=== PATIENT | male | born 1970 | race Caucasian/White ===

== ENCOUNTER 2017-12-21 15:03 | Inpatient (IN) | payer MEDICAID ==
--- NOTE | ~2017-12-21 | OP ---
PATIENT NAME: EMILIANO CRESPO MEDICAL RECORD: [id number] :72 LOCATION:D.M2 D.2117 ADMISSION DATE:12/21/17 SURGEON: PATRICIA MEHTA MD DATE OF OPERATION: 12/22/2017 PROCEDURE: Left heart catheterization, selective coronary angiography, right femoral artery approach. CATHETERS: A 5-Estonian sheath, 5/4 left and right Aamir, 5/4 pig. The procedure was well tolerated, and the patient returned to [facility]. Sheath removed. ExoSeal device placed. FINDINGS: Left ventriculography in 30-degree BURGOS view: Normal wall motion. Normal systolic function. CORONARY ANATOMY: LEFT MAIN: Left main is free of disease. LAD: Free of disease in the diagonal system. CIRCUMFLEX: Free of disease in the marginal system. RIGHT CORONARY ARTERY: Dominant artery, gives rise to PDA, free of disease. IMPRESSION: Normal systolic function. Normal coronary anatomy. TRANSINT:[id number] Voice Confirmation ID: [id number] DOCUMENT ID: [id number] PATRICIA MEHTA MD at 0843 CC: [id number] DICTATION DATE: 12/22/17817 CONTRACT PROJECT MANAGER: 12/22/17 0922 DIS IN 12/22/17 [address] [place] [address]
--- NOTE | ~2017-12-21 | HP ---
PATIENT: EMILIANO CRESPO MEDICAL RECORD: [id number] ACCOUNT: [id number] LOCATION:[facility].2117 : 72 ADMISSION DATE: 12/21/17 HISTORY AND PHYSICAL EXAMINATION REASON FOR ADMISSION: Chest and abdominal pains. HISTORY OF PRESENT ILLNESS: The patient is a 47-year-old male with history of hyperlipidemia and obesity. 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 [facility] , and stated on the last day, he was stung by something in the ocean. There was no evidence of a bite, but after that point developed onset of left facial, arm and leg tingling and burning discomfort. He had a workup including a trip to [facility] without a definitive diagnosis except for MRI findings as above. He was hospitalized at [facility] in 2016 including a spinal tap, which was unremarkable. He is now followed at [facility] by Dr. Dee, a neurologist. He states his symptoms are significant for a thalamic stroke, not evident on MRI. Nonetheless, he has noticed some intermittent chest discomfort for the last 2 weeks, not with activity. Due to his neuropathy and chest discomfort, he cannot really tell where the pain is coming from. Last night, he said he felt discomfort in his epigastrium somewhat after eating. He got up about 4:00 with increasing pain that initially it radiated into his abdominal area and resolved. He came to the office because of this at 1:30 this afternoon. Exam at that time showed him to be tender in his abdomen, 1+. KUB exam showed a left renal calculus, fairly large in size, but no sign of obstruction or constipation. EKG surprisingly showed inverted T waves in the lateral leads. He was therefore directly admitted to the hospital for cardiology consult. He denies exertional chest pain. 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 SURGICAL HISTORY: Negative. FAMILY HISTORY: Both parents are , both were alcoholics. Father at 60, had diabetes and stroke. Mother had hepatitis alcoholic in nature and at age 50. One brother is alive with history of hypertension. MEDICATIONS: Current medications are aspirin 81 mg a day, Coenzyme Q10 50 mg 2 tabs daily, Cymbalta 60 mg in the evening and 30 in the morning, Ativan 0.5 q.6 hours p.r.n. anxiety, Hyzaar 100/25 one q.a.m., Zofran 4 mg q.4 p.r.n. nausea or vomiting, Livalo 2 mg at bedtime, Maxalt-COUNTERPERSON 10 mg p.r.n. migraine headache, Zanaflex 4 mg tablets 1-1/2 tablets by mouth at bedtime, Calan SR 120 mg p.o. daily. ALLERGIES: DILAUDID. 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 He is now disabled due to his symptomatology. REVIEW OF SYSTEMS: HISTORY AND PHYSICAL [id number] EMILIANO CRESPO CONSTITUTIONAL: No fever, fatigue, or weight change. HEENT: No recent visual change, sinus congestion or sore throat. He has some intermittent trouble with left-sided facial discomfort. NECK: Denies any musculoskeletal cervicalgia. GASTROINTESTINAL: No nausea or vomiting, but abdominal pain as mentioned above. No change in stools or blood per rectum. No fatty food intolerance. GENITOURINARY: No incontinence, dysuria or nocturia. CARDIAC: No exertional chest pain. It is of note that his chest and abdominal pain relieved by nitroglycerin times 1. INTEGUMENT: No rash or itching. PSYCHIATRIC: Admits to depressed mood and anxiety because he cannot work. MUSCULOSKELETAL: He has chronic intermittent discomfort in his left arm, leg and left face. It is a tingling to burning sensation, he states. PHYSICAL EXAMINATION: VITAL SIGNS: Weight is pending. Blood pressure is 130/80. Heart rate is 82 and regular. GENERAL: The patient is anxious and alert. HEENT: Eyes are clear. Oropharynx is unremarkable. NECK: Supple without bruits or masses. CHEST: Chest wall tender over the sternum. No crepitance. HEART: Regular rate without murmur. CHEST: Clear. ABDOMEN: Soft, obese with tenderness in the left upper quadrant. No rebound. No masses are noted. GENITOURINARY: Unremarkable. EXTREMITIES: No CCE. NEUROLOGICAL: He has increased sensation discomfort to touch in the left thalamic distribution left arm, leg and face. He has 2+ manager organizational on the right, 1+ on the left. Gait is normal. LABORATORY DATA: KUB in the office showed question of a left pelvic kidney stone without obstruction, normal bowel gas pattern. EKG showed T-wave inversion in the lateral leads. Labs showed a white count of 7700, H&H of 16 and 47.2 respectively with normal diff. Electrolytes are normal. Creatinine is 1.1, glucose 99. Initial troponin is negative. Chest x-ray shows no acute findings. ASSESSMENT: 1. Atypical chest and abdominal pain. 2. Abnormal EKG with lateral T-wave inversions suggesting ischemia. 3. Thalamic pain syndrome. 4. Right choroidal ventricular cyst, hypertension, hyperlipidemia, obesity, depression. PLAN: The patient is admitted for serial cardiac enzymes. Dr. López from cardiology is seeing the patient and plans cardiac catheterization in the morning. TRANSINT:[id number] Voice Confirmation ID: [id number] DOCUMENT ID: [id number] HISTORY AND PHYSICAL [id number] EMILIANO CRESPO TIMOTHY MD at 1034 CC: [id number] DICTATION DATE: 12/21/17 173 [address]S: 12/21/17 1852 ADM IN [id number] [place] [address]
--- NOTE | ~2017-12-21 | HEMODYNAMI ---
PATIENT:EMILIANO CRESPO MEDICAL RECORD: [id number] : 72 [facility] ADMISSION DATE: 12/21/17 Generatedon:12/22/20178:15 Patient name: EMILIANO CRESPO Patient #: [id number] SSN: : Date of study: 12/22/2017 Page: Of Hemodynamic Procedure Report Patient Data Patient Demographics Procedure consent was obtained First Name: EMILIANO Gender: Male Last Name: CHERIE : 1970 [facility] Initial: SHLOMO Age: 47 year(s) Patient #: [id number] Race: Unknown Additional ID: [id number] Contact details Address: [address] [place] [address] [facility] State: [place] City: [place] Zip code: [address] Past Medical History Allergies Allergen Reaction Date Comments Reported Other allergy 12/22/2017 dilaudid Admission Admission Data Admission Date: 12/21/2017 Admission Time: 15:03 Room #: D.2117 Procedure Procedure Types Cath Procedure Diagnostic Procedure LHC LHC w/Coronaries Procedure Description Procedure Date Procedure Date: 12/22/2017 Procedure Start Time: 8:03 Procedure End Time: 8:14 Procedure Staff Name Function Erik Mota MD Performing Physician Grace Wood RT Monitor Yessenia Joiner RN Nurse Soo Castillo RT Scrub Procedure Data Cath Procedure Fluoroscopy Diagnostic fluoroscopy Total fluoroscopy Time: 0.9 time: 0.9 min min Diagnostic fluoroscopy Total fluoroscopy dose: 565 dose: 565 mGy mGy Contrast Material Contrast Material Type Amount (ml) Isovue 300 53 Entry Location Entry Primary Successful Side Size Upsize Upsize Entry Closure Succes sful Closure Location (Fr) 1 (Fr) 2 (Fr) Remarks Device Remarks Femoral Right 5 Fr Exoseal artery Estimated blood loss: 5 ml Diagnostic catheters Device Type Used For End Catheter Placement MULTIPACK JL 4.0 5Fr Left Coronary catheter Angiography MULTIPACK 3DRC 5Fr Right Coronary catheter Angiography MULTIPACK Pigtail 5 Fr LV Angiography catheter Procedure Complications No complications Procedure Medications Medication Administration Route Dosage Oxygen etCO2 Nasal cannula 2 l/min Heparin Flush Bag added to field 2 bags (1000units/500ml NS) 0.9% NaCl I.V. 100 ml/hr Lidocaine 2% added to field 20 Versed I.V. 2 mg Fentanyl I.V. 100 mcg Versed I.V. 1 mg Fentanyl I.V. 50 mcg Hemodynamics Rest Heart Rate: 82 (bpm) Pressure Samples Time Site Value (mmHg) Purpose Heart Use Rate(bpm) 8:08 LV 115/13,15 EDP 91 Gradients Valve Time Site Site Mean SEP/DFP Peak To Heart Use 1 2 (mmHg) (sec/min) Peak Rate (mmHg) (bpm) Aortic 8:08 LV AO 93 Snapshots Pre Cath Intra NCS Post Cath Vital Signs Time Heart Resp SPO2 etCO2 NIBP (mmHg) Rhythm Pain Sedation Rate (ipm) (%) (mmHg) Status Level (bpm) 7:48:35 77 16 97 34.5 131/85(100) NSR 0 (11) 10(A) , No pain 7:53:23 79 20 99 33.1 133/85(104) NSR 0 (11) 10(A) , No pain 7:58:14 76 18 95 40.6 130/75(98) NSR 0 (11) 10(A) , No pain 8:03:01 90 17 95 42.8 133/89(101) NSR 0 (11) 10(A) , No pain 8:07:50 91 13 95 45.8 134/78(101) NSR 0 (11) 10(A) , No pain 8:12:39 93 15 96 42.1 134/82(99) NSR 0 (11) 10(A) , No pain Medications Time Medication Route Dose Verified Delivered Reason Notes Effe ctiveness by by 7:49:16 Oxygen etCO2 2 Erik Casas Per Nasal l/min St Emiliano Joiner RN physician elis SRIVASTAVA 7:49:32 Heparin Flush added 2 Erik Casas used for Bag to bags St Emiliano Joiner RN procedure (1000units/500ml field SRIVASTAVA NS) 7:49:42 0.9% NaCl I.V. 100 Erik Yessenia Per ml/hr St Emiliano nicolas MD 7:52:40 Lidocaine 2% added 20ml Erik Valencia for local to vial St Emiliano Mota anesthetic field MD SRIVASTAVA 8:01:41 Versed I.V. 2 mg Erik Casas for St Emiliano Joiner RN sedation 8:01:46 Fentanyl I.V. 100 Erik Casas for mcg St Emiliano Joiner RN sedation 8:05:50 Versed I.V. 1 mg [address]as for [facility] Emiliano Joiner RN sedation 8:05:55 Fentanyl I.V. 50 Erik Casas for mcg St Emiliano Joiner RN sedation Procedure Log Time Note 7:28:10 Soo Castillo RT(R) sent for patient. Start room use. 7:28:11 Time tracking: Regular hours (M-F 7:00 - 5:00) 7:28:14 Plan of Care:Hemodynamics will remain stable., Cardiac rhythm will remain stable., Comfort level will be maintained., Respiratory function will remain adequate., Patient/ family verbilizes understanding of procedure., Procedure tolerated without complication., Recovers from procedure without complications.. 7:37:47 Patient received from PCU to CCL 1 Alert and oriented. Tansferred to table in Supine position. 7:37:48 Warm blankets applied, and benedicto hugger turned on for patient comfort. 7:37:49 Correct patient and procedure confirmed by team. 7:37:50 Signed procedure consent form obtained from patient. 7:37:51 ECG and BP/O2 sat monitors applied to patient. 7:37:51 Full Disclosure recording started 7:47:31 Vital chart was started 7:47:35 Rhythm: sinus rhythm 7:47:44 H&P Date Dictated: 12/21/2017 Within 30 days and on chart.. 7:47:45 Pre-procedure instructions explained to patient. 7:47:46 Pre-op teaching completed and patient verbalized understanding. 7:47:51 Family in patients room. 7:47:53 Patient NPO since Midnight. 7:48:27 Patient allergic to Other allergydilaudid 7:48:30 Is the patient allergic to Iodine/contrast media? No. 7:48:32 Is patient on blood thinner?Yes 7:48:34 ACC The patient was administered the following blood thiners within the last 24 hours: ACCPlavix 7:48:55 PLAVIX 600MG GIVEN 12/21/17 @ 1655 7:49:16 Oxygen 2 l/min etCO2 Nasal cannula was administered by Yessenia Joiner RN; Per physician; 7:49:18 Patient diabetic? No. 7:49:21 Previous problem with sedation/anesthesia? No ? 7:49:22 Snore? Yes 7:49:24 Sleep apnea? Yes 7:49:25 Deviated septum? No 7:49:25 Opens mouth fully? Yes 7:49:26 Sticks out tongue? Yes 7:49:28 Airway obstruction? No ? 7:49:30 Dentures? No ? 7:49:32 Heparin Flush Bag (1000units/500ml NS) 2 bags added to field was administered by Yessenia Joiner RN; used for procedure; 7:49:41 Pre procedure: right dorsailis pedis pulse 2+ Normal; easily identifiable; not easily obliterated 7:49:42 0.9% NaCl 100 ml/hr I.V. was administered by Yessenia Joiner RN; Per physician; 7:49:43 Modified Tommy's test Ulnar > 7 seconds. 7:49:57 FAILED TOMMY'S TEST 7:50:00 Patient pain scale 0/10 ?. 7:50:07 IV patent on arrival in right hand with 0.9% NaCl at [facility]. 7:50:10 Lab results completed and on chart. 7:50:16 Right groin area was prepped with chlora-prep and draped in sterile fashion 7:50:17 Alarms reviewed by R. N. 7:50:17 Sharps counted by scrub and verified by R.N. 7:50:24 Use device set Femoral Dx 7:50:25 ACIST Syringe (89173) opened to sterile field. 7:50:25 Bag Decanter (2002) opened to sterile field. 7:50:26 Medline Cath Pack ([id number]) opened to sterile field. 7:50:26 DIAGNOSTIC WIRE .035 260cm J wire (106204) opened to sterile field. 7:50:28 ACIST Hand Control (27429) opened to sterile field. 7:50:29 ACIST Manifold (63329) opened to sterile field. 7:50:29 DIAGNOSTIC Multipack 5Fr catheter set (PH5945) opened to sterile field. 7:50:31 Tegaderm 4 x 4 (1626W) opened to sterile field. 7:50:32 SHEATH Prelude 5Fr 0.035 ([id number]) opened to sterile field. 7:50:38 Baseline sample Acquired. 7:51:05 Physician paged 7:52:40 Lidocaine 2% 20ml vial added to field was administered by Erik Mota MD; for local anesthetic; 7:54:02 Zero performed for pressure channel P1 7:54:05 Zero performed for pressure channel P1 8:00:24 Final Timeout: patient, procedure, and site verified with staff and physician. All members of the team are in agreement. 8:00:26 Right groin site verified by team. 8:00:28 Physical assessment completed. ASA score P 2 - A patient with mild systemic disease as per Erik Mota MD. 8:00:31 Sedation plan: IV Moderate Sedation Medication:Versed, Fentanyl 8:01:41 Versed 2 mg I.V. was administered by Yessenia Joiner RN; for sedation; 8:01:46 Fentanyl 100 mcg I.V. was administered by Yessenia Joiner RN; for sedation; 8:03:15 Procedure started. 8:03:17 Local anesthetic to right femoral artery with Lidocaine 2% by Erik Mota MD.INITIAL ACCESS ONLY 8:03:59 A 5 Fr sheath was inserted into the Right Femoral artery 8:04:35 A MULTIPACK JL 4.0 5Fr catheter was advanced over the wire and used for Left Coronary Angiography. 8:05:50 Versed 1 mg I.V. was administered by Yessenia Joiner RN; for sedation; 8:05:52 Catheter removed. 8:05:55 Fentanyl 50 mcg I.V. was administered by Yessenia Joiner RN; for sedation; 8:06:00 A MULTIPACK 3DRC 5Fr catheter was advanced over the wire and used for Right Coronary Angiography. 8:07:03 Catheter removed. 8:07:10 A MULTIPACK Pigtail 5 Fr catheter was advanced over the wire and used for LV Angiography. 8:08:22 LV gram done using ALANA 8:08:33 Injector settings: Ml/sec: 10, Volume: 20, 8:08:34 LV hemodynamics recorded. 8:08:39 EF : 55 % 8:08:43 Catheter removed. 8:09:01 Sheath removed intact; hemostasis achieved with Exoseal to the Right Femoral artery. 8:09:08 Procedure ended.(Physican Out) 8:09:18 Fluoroscopy time 00.90 minutes. 8:09:23 Flurop Dose total: 565 8:09:23 Fluoroscopy dose: 565 mGy 8:09:27 Contrast amount:Isovue 300 53ml. 8:09:28 Sharps counted by scrub and verified by R.N. 8:09:41 Insertion/operative site no bleeding no hematoma. 8:09:44 Post-op/insertion site Right Femoral artery dressed using a 4 x 4 and Tegaderm. 8:09:49 Post right femoral artery:stable, clean and dry 8:09:51 Post Procedure Pulses reassessed and unchanged 8:10:01 Post-procedure physical assessment completed. ASA score P 2 - A patient with mild systemic disease as per Erik Mota MD. 8:10:07 Post procedure rhythm: unchanged. 8:10:11 Estimated blood loss: 5 ml 8:10:21 Post procedure instruction explained to patient.Patient verbalizes understanding. 8:10:21 Patient needs reinforcement of post procedure teaching. 8:10:27 Procedure Complication : No complications 8:10:34 See physician's report for complete and final results. 8:10:45 EXOSEAL 5Fr (EX500) opened to sterile field. 8:10:58 Procedure and supply charges have been captured, reviewed, submitted and are correct. 8:14:25 Vital chart was stopped 8:14:27 Report given to PCU. 8:14:31 Patient transfered to PCU with Bed. 8:14:39 Procedure ended. 8:14:39 Full Disclosure recording stopped 8:14:43 End room use (Document Last) Device Usage Item Name Manufacture Quantity Catalog Number Hospital Part Current M inimal Lot# / Charge Number Stock Stock Serial# Code ACIST Syringe Acist 1 10566 [id number] [id number] 2 0 (94511) [employer] Bag Decanter Microtek 1 [id number] 87175 [id number] 5 () [employer] Inc. Medline Cath Cardinal 1 [id number] 635414 61161 884870 5 [employer] ([id number]) DIAGNOSTIC WIRE St Willie 1 105105 064568 935535 260106 3 0 .035 260cm J wire (010705) ACIST Hand Acist 1 06252 995872 123485 612910 5 Control (87855) [employer] ACIST Manifold Acist 1 18015 468430 027691 248510 5 (55849) [employer] DIAGNOSTIC Cardinal 1 [id number] 094075 14795 251026 3 0 Multipack 5Fr Health catheter set (BL3099) Tegaderm 4 x 4 3M 1 1626W [id number] 659834 728711 5 (1626W) SHEATH Prelude Merit 1 [id number]-1X-88-035 828946 098188 503790 5 5Fr 0.035 Medical (FCT-1L-73) MULTIPACK JL Cardinal 1 174968 5 4.0 5Fr Health catheter MULTIPACK 3DRC Cardinal 1 [id number] 5 5Fr catheter Health MULTIPACK Cardinal 1 [id number] 5 Pigtail 5 Fr Health catheter EXOSEAL 5Fr Cardinal 1 EX500 257978 172307 295632 1 0 (EX500) Health Signature Audit [place] Stage Time Signature Unsigned Intra-Procedure 12/22/2017 Grace 8:15:50 AM Counts RT(R) Signatures Monitor : Grace Signature : Counts RT Date : Time : [address] [address]
[2017-12-21] MEDS ORDERED: CYMBALTA60 MG PO (15:25)
[2017-12-21] MEDS ORDERED: LAMICTAL25 MG PO (15:27)
[2017-12-21] MEDS ORDERED: ZANAFLEX4 MG PO (15:29)
[2017-12-21] MEDS ORDERED: ATIVAN1 MG PO (15:31)
[2017-12-21] MEDS ORDERED: VERELAN360 MG PO (15:32)
[2017-12-21] MEDS ORDERED: LIVALO4 MG PO ×2 (15:33→15:39)
[2017-12-21] MEDS ORDERED: ASPIRIN81 MG PO (15:34)
[2017-12-21] MEDS ORDERED: HYZAAR 100-25 T1 TAB PO (15:35)
[2017-12-21] MEDS ORDERED: RITALIN10 MG PO (15:38)
[2017-12-21] MEDS ORDERED: CO Q-10100 MG PO (15:40)
[2017-12-21] MEDS ORDERED: ZOFRAN4 MG PO (15:41)
[2017-12-21 15:59] LABS: CKMB 1.7 U/L (0.0-3.6); CREATINE KINASE 176 UL (21-232); LDH 200 U/L (85-227); TROPONIN-I < 0.017 ng/mL (0.000-0.060)
[2017-12-21 16:34] LABS: CALC OSMOLALITY 277 mosm/kg (275-300); CARBON DIOXIDE 25.2 mmol/L (21.0-32.0); CHLORIDE - SERUM 104 mmol/L (98-107); CREATININE - SERUM 1.1 mg/dL (0.6-1.3); GLUCOSE 99 mg/dL (74-106); POTASSIUM - SERUM 3.6 mmol/L (3.5-5.1); SODIUM 139 mmol/L (136-145); UREA NITROGEN 12 mg/dL (7-18); eGFR NON AFRICAN AMERICAN 76 mL/min (90-120)
[2017-12-21 16:55] LABS: BASOPHILS 0.3 % (0-2); EOSINOPHILS 2.1 % (0-7); HEMATOCRIT 47.2 % (42.0-54.0); HEMOGLOBIN 16.7 g/dL (13.5-17.5); IMMATURE GRANULOCYTES 0.1 % (0-5); LYMPHOCYTES 27.7 % (15-50); MCH 31.6 pg (26.0-34.0); MCHC 35.4 g/dL (31.0-37.0); MCV 89.2 fL (80.0-100.0); MEAN PLATELET VOLUME 11.7 fL (7.4-10.4); MONOCYTES 10.4 % (2-11); NEUTROPHILS 59.4 % (40-80); PLATELET COUNT 225 10x3/uL (130-400); RBC 5.29 10x6/uL (4.20-6.10); WBC 7.7 10x3/uL (4.8-10.8)
[2017-12-21 19:54] LABS: CKMB 1.5 U/L (0.0-3.6); CREATINE KINASE 161 UL (21-232)
[2017-12-21 19:55] LABS: TROPONIN-I < 0.017 ng/mL (0.000-0.060)
[2017-12-21 20:40] VITALS: BP 118/70
[2017-12-21 23:00] LABS: CKMB 1.7 U/L (0.0-3.6); CREATINE KINASE 159 UL (21-232); TROPONIN-I < 0.017 ng/mL (0.000-0.060)
[2017-12-22 00:05] VITALS: BP 119/69
[2017-12-22 04:52] VITALS: BP 104/59
[2017-12-22 08:13] VITALS: BP 122/72
[2017-12-22 12:46] VITALS: BP 128/77
[2017-12-22 16:04] VITALS: BP 125/64
== END 2017-12-22 18:12 | disposition home or self-care (01) | DRG 287 ==
LOC: D.M2 15:03
PROVIDERS: Family Medicine; Internal Medicine Interventional Cardiology
PROC: B2151ZZ Fluoroscopy of Left Heart using Low Osmolar Contrast (ICD-10-PCS; 2017-12-22)
PROC: 4A023N7 Measurement of Cardiac Sampling and Pressure, Left Heart, Percutaneous Approach (ICD-10-PCS; 2017-12-22)
PROC: B2111ZZ Fluoroscopy of Multiple Coronary Arteries using Low Osmolar Contrast (ICD-10-PCS; principal; 2017-12-22 07:28)
DX: R07.9 Chest pain, unspecified (principal); E66.9 Obesity, unspecified; E78.5 Hyperlipidemia, unspecified; I10 Essential (primary) hypertension; R94.31 Abnormal electrocardiogram [ECG] [EKG]; Z86.73 Personal history of transient ischemic attack (TIA), and cerebral infarction without residual deficits; R10.9 Unspecified abdominal pain